=== PATIENT | female | born 1930 | race Caucasian/White ===

== ENCOUNTER 2017-04-12 10:39 | Day surgery (SDC) | payer MEDICARE, OTHER ==
[~2017-04-12] VITALS: Ht 167.6 cm; Wt 54.0 kg
[2017-04-12 15:05] VITALS: BP 110/58
--- NOTE | 2017-04-14 12:44 | Operative Note ---
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 The left eye was protected with Steri- Strips. The perilesional area was very extensive measuring at least 4.5 cm in length and 2 cm in width. It was infiltrated with a total of 5 mL of 2 percent lidocaine containing epinephrine. The markup was incised and the lesion was excised well into the subcutaneous layer. The fascial muscles and facial nerve were not involved. Bleeding was stopped with bipolar cautery blood loss was less than 10 mL. Flaps were elevated and a tissue rearrangement geometric plastic repair was done with interrupted 4-0 Vicryl and 5-0 nylon. A Dermabond dressing was applied. Patient tolerated procedure well. EBL (ml): 6 Specimens obtained: Same as above Complications: None Additional Information: Ancef 1G and Decadron 12mg given preop at 1314
== END 2017-04-12 13:45 | disposition home or self-care (01) ==
LOC: SDC 10:39
PROVIDERS: Otolaryngology
PROC: 0HB1XZX Excision of Face Skin, External Approach, Diagnostic (ICD-10-PCS; principal; 2017-04-12 12:00)
DX: D23.39 Other benign neoplasm of skin of other parts of face (principal)